=== PATIENT | female | born 1970 | race Caucasian/White ===

== ENCOUNTER 2024-02-05 07:48 | Emergency (ER) | payer BC ==
[~2024-02-05] VITALS: Ht 167.6 cm; Wt 90.9 kg
[~2024-02-05 07:48] MED LIST: CAPT12.52 PO
[2024-02-05] MEDS: MECLIZINE HCL 25 MG TAB PO ONE (08:03)
[2024-02-05] MEDS: SODIUM CHLORIDE 0.9% 1,000 ML IV ONE (08:07)
[2024-02-05 08:30] LABS: Basophils # (auto) 0 10 ^3/uL (0-0.2); Basophils % (auto) 0.6 % (0.0-2.0); Eosinophils # (auto) 0.1 10 ^3/uL (0-0.8); Eosinophils % (auto) 1.9 % (0.0-7.0); Hematocrit 37.4 % (36.0-46.0); Hemoglobin 12.8 g/dL (12.2-16.2); Lymphocytes # (auto) 1.6 10 ^3/uL (0.4-5.4); Lymphocytes % (auto) 28.9 % (10.0-50.0); Mean Corpuscular Hemoglobin 31.2 pg (28.0-32.0); Mean Corpuscular Hgb Conc. 34.1 g/dL (32.0-36.0); Mean Corpuscular Volume 91.4 fL (80.0-100.0); Monocytes # (auto) 0.3 10 ^3/uL (0-1.3); Monocytes % (auto) 5.3 % (0.0-12.0); Neutrophils # (auto) 3.4 10 ^3/uL (1.6-8.6); Neutrophils % (auto) 63.3 % (37.0-80.0); Nucleated Red Blood Cells % 0.2 %; Red Cell Distribution Width 15.9 % (11.8-14.3); White Blood Cell 5.4 10^3/uL (4.4-10.8)
[2024-02-05 08:46] LABS: Chloride 106 mmol/L (98-107); Potassium 4.1 mmol/L (3.5-5.1); Sodium 141 mmol/L (136-145)
[2024-02-05 08:47] LABS: Anion Gap 7 (5-15); Carbon Dioxide 28 mmol/L (20-30)
[2024-02-05 08:52] LABS: BUN/Creatinine Ratio 12.2 (10.0-20.0); Blood Urea Nitrogen 14 mg/dL (9-23); Glucose 138 mg/dL (74-106)
[2024-02-05 10:48] VITALS: BP 138/68; PULSE 65; RESP 16; TEMP 98.9; O2SAT 97
== END 2024-02-05 10:51 | disposition home or self-care (01) ==
LOC: EDBD 07:48 → ER 07:48
DX: G90.9 Disorder of the autonomic nervous system, unspecified (principal); E11.65 Type 2 diabetes mellitus with hyperglycemia; I10 Essential (primary) hypertension; E78.5 Hyperlipidemia, unspecified
CPT/HCPCS: 36415; 70450; 80048; 84484; 85025; 93005; 96360; 96361; 99284; J7030; J8597